=== PATIENT | female | born 1950 | race Caucasian/White ===

== ENCOUNTER → 2017-01-26 | Outpatient (CLI) | payer BC ==
[2017-01-26 08:44] LABS: HEMOGLOBIN 14.2 g/dL (12.2-16.2); LYMPH # 1.2 K/mm3 (0.7-4.5); LYMPH % 23.7 % (10-50.0)
[2017-01-26 11:28] LABS: BUN 17 mg/dL (7-18)
[2017-01-26 11:34] LABS: GFR (ESTIMATED) 56 ML/MIN (59-)
== END ==
LOC: LAB 07:41
PROVIDERS: Nurse Practitioner Family
DX: I10 Essential (primary) hypertension (principal); D51.0 Vitamin B12 deficiency anemia due to intrinsic factor deficiency; E03.9 Hypothyroidism, unspecified

== ENCOUNTER → 2017-01-30 | Outpatient (CLI) | payer BC ==
--- NOTE | 2017-01-30 11:26 | RADIOLOGY REPORT PS360 ---
KNEE-3 VIEWS-RT HISTORY: RT MEDIAL KNEE PAIN ORDERING PHYSICIAN: Tom Flores MD PATIENT AGE: 66 years COMPARISON: None FINDINGS: No fracture or dislocation. No lytic or blastic change. Normal mineralization. There is minimal spurring along the posterior patella. The joint spaces are well-preserved. IMPRESSION: Minimal osteoarthritic change, no acute finding
== END ==
LOC: RAD 11:07
DX: M25.561 Pain in right knee (principal)